=== PATIENT | male | born 1960 | race Caucasian/White ===

== ENCOUNTER 2022-07-14 11:54 | Emergency (ER) | payer OTHER ==
[2022-07-14] MEDS ORDERED: Acetaminophen 500 MG TAB ONE (12:17)
[2022-07-14] MEDS ORDERED: Cyclobenzaprine 10 MG TAB ONE ×3 (12:17→12:25)
== END 2022-07-14 14:00 | disposition home or self-care (01) ==
LOC: MADERS 11:54
DX: M16.12 Unilateral primary osteoarthritis, left hip (principal); I10 Essential (primary) hypertension; E78.5 Hyperlipidemia, unspecified; Z79.899 Other long term (current) drug therapy